=== PATIENT | female | born 1995 | race Caucasian/White ===

== ENCOUNTER 2019-08-16 17:39 | Emergency (ER) | payer MEDICAID ==
[~2019-08-16] VITALS: Ht 157.5 cm; Wt 83.9 kg
[2019-08-16 18:53] VITALS: BP_SYST 105
--- NOTE | 2019-08-16 20:32 | NUR ---
Pt c/o "flu-like symptoms." Pt states that she has had a wet cough with chenega-green mucous, intermittent fever, and chills x 1 month.
--- NOTE | 2019-08-16 20:32 | NUR ---
Patient to ER bed 6 to gown for evaluation. Side rails up.
--- NOTE | 2019-08-16 21:12 | NUR ---
Dr. Eddy at bedside.
[2019-08-16] MEDS ORDERED: AMOXICILLIN 500 MG CAPSULE PO ONE (21:30)
[2019-08-16 22:20] VITALS: BP_SYST 134
--- NOTE | 2019-08-16 22:20 | NUR ---
Patient given written and verbal discharge instructions and verbalizes understanding. ER MD discussed with patient the results and treatment provided. Patient in stable condition. ID arm band removed. Rx of Amoxicillin given. Patient educated on pain management and to follow up with PMD. Pain Scale 0. Opportunity for questions provided and answered. Medication side effect fact sheet provided.
== END 2019-08-16 22:20 | disposition home or self-care (01) ==
LOC: SED 17:39
DX: J40 Bronchitis, not specified as acute or chronic (principal)
CPT/HCPCS: 36415; 86710; 99283